=== PATIENT | female | born 1985 | race African-American/Black ===

== ENCOUNTER 2018-04-18 15:57 | Emergency (ER) | payer OTHER ==
[~2018-04-18] VITALS: Ht 167.6 cm; Wt 78.9 kg
--- NOTE | 2018-04-18 16:24 | PHYS DOC ---
Adult General Chief Complaint Chief Complaint: MENSTRUAL PAIN/CRAMPS HPI HPI Patient is a pleasant 33-year-old who presents for evaluation of lower abdominal cramping. Her LMP was 03/09/18. She states that yesterday she had some slight spotting but that today she has had none. She reports similar symptoms with her son but has difficulty explaining to me exactly what they diagnosed her with. She has not yet had any OB care during this . She to go home test which was positive. She is alert and oriented 4, calm, and appears to be in no distress at this time. She denies any current vaginal bleeding or any discharge. Review of Systems Review of Systems Constitutional: Denies fever or chills [] Eyes: Denies change in visual acuity, redness, or eye pain [] HENT: Denies nasal congestion or sore throat [] Respiratory: Denies cough or shortness of breath [] Cardiovascular: No additional information not addressed in HPI [] GI: Denies abdominal pain, nausea, vomiting, bloody stools or diarrhea [] : Denies dysuria or hematuria [] lower abdominal/pelvic cramping, spotting yesterday none today Musculoskeletal: Denies back pain or joint pain [] Integument: Denies rash or skin lesions [] Neurologic: Denies headache, focal weakness or sensory changes [] Endocrine: Denies polyuria or polydipsia [] All other systems were reviewed and found to be within normal limits, except as documented in this note. Family History Family History Uncontributory Current Medications Current Medications See nursing for home meds Allergies Allergies See nursing Physical Exam Physical Exam Constitutional: Well developed, well nourished, no acute distress, non-toxic appearance. [] HENT: Normocephalic, atraumatic, bilateral external ears normal, oropharynx moist, no oral exudates, nose normal. [] Eyes: PERRLA, EOMI, conjunctiva normal, no discharge. [] Neck: Normal range of motion, no tenderness, supple, no stridor. [] Cardiovascular:Heart rate regular rhythm, no murmur [] Lungs & Thorax: Bilateral breath sounds clear to auscultation [] Abdomen: Bowel sounds normal, soft, no masses, no pulsatile masses. [] mild lower abdominal/suprapubic tenderness, no guarding, no rigidity Skin: Warm, dry, no erythema, no rash. [] Back: No tenderness, no CVA tenderness. [] Extremities: No tenderness, no cyanosis, no clubbing, ROM intact, no edema. [] Neurologic: Alert and oriented X 3, normal motor function, normal sensory function, no focal deficits noted. [] Psychologic: Affect anxious, judgement normal, mood normal. [] EKG EKG [] Radiology/Procedures Radiology/Procedures Ultrasound shows intrauterine sac. No documented heart rate. Estimated 5 weeks 4 days.[] Course & Med Decision Making Course & Med Decision Making Pertinent Labs and Imaging studies reviewed. (See chart for details) @1800 - Patient care handed over to Dr. Rolon at this time. Awaiting labs and ultrasound results. Anticipate discharge home pending those results. Follow-up primary care. Patient follow-up [facility]. Continue monitor for bleeding. Return if any concerns. Patient take a daily vitamin. Impression- 1. Threaten 2. Beta hCG 5229 3. O + Blood Dragjean claude Disclaimer Dragjean claude Disclaimer This electronic medical record was generated, in whole or in part, using a voice recognition dictation system. Departure Departure: Impression: Primary Impression: Abdominal pain during Referrals: PCP,NO (PCP) Scripts Vits W-Ca,Fe,Fa(<1MG) ( VITAMINS) 1 Each Tablet 1 TAB PO DAILY, #90 TAB 3 Refills Prov: EDI ROLON MD 04/18/18 LUI ESPINOSA DO Apr 18, 2018 16:24 EDI ROLON MD Apr 19, 2018 06:37
[2018-04-18 18:15] LABS: BACTERIA,URINE 0 /HPF (0-FEW); BILIRUBIN,URINE NEG (NEG); CLARITY,URINE CLEAR; COLOR,URINE STRAW; GLUCOSE,URINE NEG (NEG); NITRITE,URINE NEG (NEG); RBC,URINE 0 /HPF (0-2); SQUAMOUS EPITHELIAL CELL,UR OCC /LPF; UROBILINOGEN,URINE 0.2 mg/dL (0.2 mg/dL); WBC,URINE 0 /HPF (0-4)
--- NOTE | 2018-04-18 18:54 | RAD ---
Indication:quant beta hcg 5,229 lower abd cramping TECHNIQUE: Grayscale, color Doppler and spectral waveform images of the pelvis obtained. COMPARISON:None FINDINGS: The uterus measures 10.1 x 6.3 x 4.67 cm (longitudinal, transverse, AP). The left ovary measures 2.3 x 2.3 x 2.0 cm and demonstrates evidence of blood flow. The right ovary measures 3.2 x 2.2 x 2.3 cm and demonstrate evidence of blood flow. Intrauterine gestation sac is seen. Yolk sac is seen measuring 2.2 mm. The gestation sac measures 0.9 x 0.5 x 0.8 cm corresponding to gestation age of 5 weeks 4 days. Nabothian cyst is seen in the cervix. Most likely a corpus luteal cyst of is seen in the left ovary. 2.2 x 1.3 x 1.9 cm partially exophytic fibroid is seen in the posterior uterine body. IMPRESSION: Intrauterine gestation sac corresponding to estimated gestation age of 5 weeks 4 days. No pole seen yet. Follow-up ultrasound recommended to document pole. Electronically signed by: Gregorio Campos DO (04/18/2018 6:51 PM) [facility]
[2018-04-18] MEDS ORDERED: PREN1TAB58 PO (19:53)
[2018-04-18 20:00] VITALS: BP 139/84
== END 2018-04-18 20:04 | disposition home or self-care (01) ==
LOC: ER 15:57
DX: O20.0 Threatened abortion (principal); Z3A.01 Less than 8 weeks gestation of pregnancy
CPT/HCPCS: 36415; 76801; 76817; 81001; 84702; 86900; 86901; 99285-25

== ENCOUNTER 2018-04-26 07:36 | Emergency (ER) | payer OTHER ==
[~2018-04-26] VITALS: Ht 165.1 cm; Wt 81.6 kg
[~2018-04-26 07:36] MED LIST: PREN1TAB58 PO
--- NOTE | 2018-04-26 08:02 | PHYS DOC ---
Past History Past Medical History: Asthma Additional Past Medical Histor: history of fibroids Additional Past Surgical Histo: history of laparotomy and myomectomy Smoking: Non-smoker Alcohol Use: None Drug Use: None Adult General Chief Complaint Chief Complaint: VAGINAL BLEEDING HPI HPI 33-year-old female presenting to the emergency department today with vaginal bleeding and . She reports being approximately 6 weeks . Last menstrual period was March 09. She was seen approximately one week ago here in the emergency room where they had an ultrasound that demonstrated a gestational sac without pole. She comes in today because she said vaginal bleeding for about 24 hours with mild cramping. The cramping is nonradiating intermittent. She denies nausea vomiting. She denies fevers or chills. Review of systems is negative for shortness of breath. She denies chest pain nausea vomiting diarrhea constipation. All other review of systems is negative unless otherwise noted in history of present illness. ED course: 33-year-old female proximally 6 weeks presenting to the emergency department today with vaginal bleeding and . On arrival she is afebrile with a normal heart rate. Saturating well on room air. On examination she is a soft and nontender abdomen. Negative McBurney's point. Negative Toribio sign. Patient's Rh is positive by chart review. O+ blood type. Repeat ultrasound obtained along with CBC and chemistry panel. Urinalysis ordered as well. Ultrasound shows intrauterine . Otherwise workup unremarkable. Urinalysis shows very small amount of bacteria in the urine. Patient is allergic to penicillins. I had a long risk-benefit discussion with the patient about initiating antibiotics and the risk to . Most antibiotics and are penicillins or cephalosporins. I discussed cross- reactivity. Collectively we decided to not initiate antibiotics at this time given the risk of allergy. Follow-up with OB in 2-3 days.The patient has been examined and was not found to have an emergency medical condition. The patient was then discharged home in stable condition to follow up with their primary care physician and OB over the next 2-3 days. They were to return if their symptoms worsened or if they were concerned for any reason. They were also instructed to return to the emergency department if they were unable to get the recommended and appropriate follow-up. [id number] discharge instructions and return precautions were given. Patient's questions were answered to their satisfaction. Patient is comfortable with plan. Review of Systems Review of Systems SEE ABOVE. Allergies Allergies Allergies Coded Allergies Type Severity Reaction Last Updated Verified bee venom protein (honey bee) Allergy Unknown 04/18/18 Yes iodine Allergy Unknown 04/18/18 Yes shellfish derived Allergy Unknown 04/18/18 Yes Physical Exam Physical Exam SEE ABOVE Constitutional: Well developed, well nourished, no acute distress, non-toxic appearance. [] HENT: Normocephalic, atraumatic, bilateral external ears normal, oropharynx moist, no oral exudates, nose normal. [] Eyes: PERRLA, EOMI, conjunctiva normal, no discharge. [] Neck: Normal range of motion, no tenderness, supple, no stridor. [] Cardiovascular:Heart rate regular rhythm, no murmur [] Lungs & Thorax: Bilateral breath sounds clear to auscultation [] Abdomen: Bowel sounds normal, soft, no tenderness, no masses, no pulsatile masses. [] Skin: Warm, dry, no erythema, no rash. [] Back: No tenderness, no CVA tenderness. [] Extremities: No tenderness, no cyanosis, no clubbing, ROM intact, no edema. [] Neurologic: Alert and oriented X 3, normal motor function, normal sensory function, no focal deficits noted. [] Psychologic: Affect normal, judgement normal, mood normal. [] EKG EKG [] Radiology/Procedures Radiology/Procedures [] Course & Med Decision Making Course & Med Decision Making Pertinent Labs and Imaging studies reviewed. (See chart for details) [] Dragon Disclaimer Dragon Disclaimer This electronic medical record was generated, in whole or in part, using a voice recognition dictation system. Departure Departure: Impression: Primary Impression: Vaginal bleeding during Disposition: 01 HOME, SELF-CARE Condition: STABLE Referrals: JENNIFER NAJERA DO, MPH (PCP) Patient Instructions: Vaginal Bleeding During , First Trimester Additional Instructions: Thank you for allowing us to participate in your care today. Return to the emergency department you have any new or worsening symptoms, or if you are concerned for any reason. Return to emergency department if you have any new or concerning symptoms including but not limited to fever, chills, nausea, vomiting, intractable pain, any new rashes, chest pain, shortness of air , uncontrolled bleeding, difficulty breathing, and/or vision loss. Follow up with your OB doctor within 3 days. Call your Primary Doctor tomorrow and inform them of your visit today. If you do not have a primary care provider we are happy to provide you with a list of our primary care providers contact information. This condition should be evaluated by your primary care physician and any recommended consulting services for continued management within 2-3 days after discharge. If at any time, you are having difficulty getting into your primary care doctor or a specialist, return to the emergency department. FRANK CROCKETT MD Apr 26, 2018 08:02
[2018-04-26 08:08] LABS: BILIRUBIN,URINE NEG (NEG); CLARITY,URINE CLEAR; COLOR,URINE YELLOW; GLUCOSE,URINE NEG (NEG)
[2018-04-26 08:09] LABS: BACTERIA,URINE FEW /HPF (0-FEW); NITRITE,URINE NEG (NEG); RBC,URINE 0 /HPF (0-2); SQUAMOUS EPITHELIAL CELL,UR FEW /LPF; UROBILINOGEN,URINE 0.2 mg/dL (0.2 mg/dL); WBC,URINE RARE /HPF (0-4)
[2018-04-26 08:23] LABS: BASO # 0.1 x10^3/uL (0.0-0.2); BASO % 1 % (0-3); EOS # 0.1 x10^3/uL (0.0-0.7); EOS % 1 % (0-3); HEMATOCRIT 40.6 % (36.0-47.0); HEMOGLOBIN 13.6 g/dL (12.0-15.5); LYMPH # 1.7 x10^3/uL (1.0-4.8); LYMPH % 36 % (24-48); MEAN CORPUSCULAR HEMOGLOBIN 29 pg (25-35); MEAN CORPUSCULAR HGB CONC 34 g/dL (31-37); MEAN CORPUSCULAR VOLUME 86 fL (79-100); MONO # 0.4 x10^3/uL (0.0-1.1); MONO % 8 % (0-9); NEUT # 2.6 x10^3uL (1.8-7.7); NEUT % 54 % (31-73); PLATELET COUNT 259 x10^3/uL (140-400); RED BLOOD COUNT 4.72 x10^6/uL (3.50-5.40); RED CELL DISTRIBUTION WIDTH 14.3 % (11.5-14.5); WHITE BLOOD COUNT 4.9 x10^3/uL (4.0-11.0)
[2018-04-26 08:34] LABS: CALCIUM 9.6 mg/dL (8.5-10.1); CREATININE 0.8 mg/dL (0.6-1.0); GFR 99.4; POTASSIUM 4.1 mmol/L (3.5-5.1)
--- NOTE | 2018-04-26 09:09 | RAD ---
EXAM: Obstetrics sonogram. HISTORY: Bleeding and cramps. TECHNIQUE: Transabdominal and transvaginal sonographic imaging of the pelvis was performed. COMPARISON: 04/18/2018. FINDINGS: There is a single intrauterine gestational sac with pole and yolk sac. The crown-rump length is 0.42 cm, corresponding with an estimated gestational age of 6 weeks and 1 day. The mean gestational sac diameter is 1.80 cm, corresponding with an estimated additional age of 6 weeks and 5 days. The estimated gestational age based on combined crown-rump length and mean sac diameter measurements is 6 weeks and 3 days. The heart rate is 113 bpm. The gestational sac is normal in configuration. No subchorionic hematoma is seen. The uterus measures 12.5 x 7.6 x 5.5 cm. There is a small fibroid within the posterior uterine fundus measuring 2.4 cm. The ovaries are normal in size and demonstrate normal blood flow. There is a 1.6 cm left ovarian corpus luteum cyst. The amniotic fluid is grossly normal. The placenta is is not assessed given the early gestation. IMPRESSION: 1. Single intrauterine fetus with an estimated gestational age patient combined crown-rump length and mean sac diameter measurements of 6 weeks and 3 days. The heart rate is 113 bpm. The RITO is 12/17/2018. 2. 1.6 cm left corpus luteum cyst. 3. 2.4 cm uterine fibroid. Electronically signed by: Sandrine Guerrero MD (04/26/2018 9:06 AM) [id number]
[2018-04-26 09:20] VITALS: BP 114/75
== END 2018-04-26 09:30 | disposition home or self-care (01) ==
LOC: ER 07:36
DX: O46.91 Antepartum hemorrhage, unspecified, first trimester (principal); O26.891 Other specified pregnancy related conditions, first trimester; R82.71 Bacteriuria; O99.511 Diseases of the respiratory system complicating pregnancy, first trimester; J45.909 Unspecified asthma, uncomplicated; Z3A.01 Less than 8 weeks gestation of pregnancy; Z91.030 Bee allergy status; Z91.041 Radiographic dye allergy status; Z91.013 Allergy to seafood
CPT/HCPCS: 36415; 76801; 76817; 80048; 81001; 84702; 85025; 99285

== ENCOUNTER 2018-08-19 08:39 | Emergency (ER) | payer OTHER ==
[~2018-08-19] VITALS: Ht 317.5 cm; Wt 98.0 kg
[2018-08-19 08:39] VITALS: BP 130/64
--- NOTE | 2018-08-19 09:10 | PHYS DOC ---
Past History Past Medical History: Asthma Additional Past Medical Histor: history of fibroids Additional Past Surgical Histo: history of laparotomy and myomectomy Smoking: Non-smoker Alcohol Use: None Drug Use: None Adult General Chief Complaint Chief Complaint: SORE THROAT [facility] HPI Patient is a 33-year-old female who presents with complaint of sore throat and sinus drainage for the last 2 days. Patient also has had a cough that is been productive of yellow sputum. She denies any fever. She states that she has difficulty with swallowing due to the pain and also complains of left earache. She has had no nausea or vomiting. She denies any chest pain or shortness of breath. Review of Systems Review of Systems Constitutional: Denies fever or chills [] HENT: Complains of nasal/sinus congestion and sore throat [] Respiratory: Complains of productive cough without shortness of breath [] Cardiovascular: No additional information not addressed in HPI [] Allergies Allergies Allergies Coded Allergies Type Severity Reaction Last Updated Verified Penicillins Allergy Unknown 04/26/18 Yes bee venom protein (honey bee) Allergy Unknown 04/26/18 Yes iodine Allergy Unknown 04/26/18 Yes shellfish derived Allergy Unknown 04/26/18 Yes Physical Exam Physical Exam Constitutional: Well developed, well nourished, no acute distress, non-toxic appearance. [] HENT: Normocephalic, atraumatic, bilateral external ears normal, there is pharyngeal erythema without exudates, nose normal. [] Neck: Normal range of motion, no tenderness, supple, no stridor. [] Cardiovascular: Regular rate and rhythm, no murmur [] Lungs & Thorax: Bilateral breath sounds clear to auscultation [] Skin: Warm, dry, no erythema, no rash. [] EKG EKG [] Radiology/Procedures Radiology/Procedures [] Course & Med Decision Making Course & Med Decision Making Pertinent Labs and Imaging studies reviewed. (See chart for details) [] Dragon Disclaimer Dragon Disclaimer This electronic medical record was generated, in whole or in part, using a voice recognition dictation system. Departure Departure: Impression: Primary Impression: Sinusitis Disposition: 01 HOME, SELF-CARE Condition: STABLE Referrals: JENNIFER NAJERA DO, M[facility] (PCP) Patient Instructions: Sinusitis Scripts Azithromycin (ZITHROMAX) 250 Mg Tablet 1 PKG PO UD for infection, #6 TAB Prov: OPAL BELLO Jr. DO 08/19/18 Problem Qualifiers Primary Impression: Sinusitis Sinusitis location: maxillary Chronicity: acute Recurrence: non-recurrent Qualified Codes: J01.00 - Acute maxillary sinusitis, unspecified OPAL BELLO Jr. DO Aug 19, 2018 09:10
[2018-08-19] MEDS ORDERED: AZIT250T PO (09:30)
== END 2018-08-19 09:40 | disposition home or self-care (01) ==
LOC: ER 08:39
DX: J01.00 Acute maxillary sinusitis, unspecified (principal); J45.909 Unspecified asthma, uncomplicated; Z91.030 Bee allergy status; Z91.041 Radiographic dye allergy status; Z88.0 Allergy status to penicillin; Z91.013 Allergy to seafood
CPT/HCPCS: 87070; 87880; 99283